=== PATIENT | male | born 1945 | race Caucasian/White ===

== ENCOUNTER 2018-12-28 18:37 | Emergency (ER) | payer MEDICARE, BC ==
--- NOTE | 2018-12-28 20:10 | CT ---
CT cervical spine Technique: Multiple axial sections were obtained from above C1 inferiorly to the top of T2. Reconstructed sagittal and coronal images were reviewed. Findings: Mild scattered disc space narrowing is seen. Minimal spondylolisthesis is noted at C6-C7 due to degenerative apophyseal change. Other degenerative apophyseal change is seen throughout the cervical spine. Slight posterior osteophytes are noted at C5-C6 and C6-C7. Diffuse scattered anterior osteophytes are seen. Mild right-sided neural foraminal stenosis is noted at C3-C4. Other neural foramina are felt to be patent. No bony central canal stenosis is seen. No fracture is identified. Impression: 1. Degenerative change as described above. Nothing acute is appreciated on CT study of the cervical spine. Diagnostic code #2
--- NOTE | 2018-12-28 20:13 | CR ---
Lumbar spine: AP, lateral and coned-down lateral view centered to the lumbosacral junction were obtained. Severe disc space narrowing is noted at L5-S1. Scattered anterior endplate osteophytes are seen throughout the lower thoracic and lumbar spine. Pedicles are intact. No discrete fracture or subluxation is seen. Sacroiliac joint on the right side shows slight sclerosis. Numerous surgical clips are seen within the pelvis. Impression: 1. Degenerative change as noted above. Previous pelvic surgery. Diagnostic code #2
--- NOTE | 2018-12-28 20:13 | CT ---
Head CT Technique: Multiple axial sections through the brain were obtained. Intravenous contrast was not utilized. Comparison: No previous intracranial imaging. Findings: Soft tissue swelling and soft tissue hematoma is seen within the left scalp within the posterior left frontal region and temporal region. No skull fracture is seen. Ventricles along with basal cisterns and sulci over the convexities are mildly prominent. No abnormal parenchymal densities are seen. No evidence of intracranial hemorrhage. No midline shift or mass effect is seen. Impression: 1. Scalp injury as noted above. Mild atrophy. 2. No acute intracranial abnormality or skull fracture is seen. Diagnostic code #2
--- NOTE | 2018-12-28 20:28 | EDM.PDOC ---
ED HPI GENERAL MEDICAL PROBLEM - General Chief Complaint: Trauma Stated Complaint: RAN OVER BY A COW/HEAD INJURY Time Seen by Provider: 12/28/18 18:52 Source of Information: Reports: Patient, Family History Limitations: Reports: No Limitations - History of Present Illness INITIAL COMMENTS - FREE TEXT/NARRATIVE: The patient presents with left sided head injury, neck and low back pain. The patient was trying to get a cow in a head gate and he was in the alley with her. The head gate did not catch her and she came backward and knocked him over. He got hit in the head and stepped on. He has lacerations to the left side of his head with edema to the left scientologist. He also has some neck pain and low back pain. He had no LOC. His tetanus is up to date. He has no blurred vision or double vision. He has no chest pain or shortness of breath. He has no abdominal pain, nausea or vomiting. Onset: Sudden Duration: Minutes: Location: Reports: Head, Neck, Back Quality: Reports: Sharp Severity: Moderate Improves with: Reports: None Worsens with: Reports: None Associated Symptoms: Reports: Headaches. Denies: Chest Pain, Cough, Fever/ Chills, Nausea/Vomiting, Shortness of Breath Left Head Pain Score (Numeric/FACES): 4 - Related Data Allergies Allergy/AdvReac Type Severity Reaction Status Date / Time No Known Allergies Allergy Verified 12/28/18 18:54 Home Meds: Home Meds Bisoprolol/Hydrochlorothiazide [Bisoprolol/HCTZ 10-6.25 MG] 1 tab PO DAILY 12/28 [History] Lisinopril 2.5 mg PO DAILY 12/28/18 [History] Past Medical History Cardiovascular History: Reports: Hypertension Oncologic (Cancer) History: Reports: Prostate Other Oncologic History: radical prostectomy- also had radiation treament when PSA started to climb Social & Family History - Tobacco Use Smoking Status *Q: Former Smoker Used Tobacco, but Quit: Yes Month/Year Tobacco Last Used: 40 yrs - Caffeine Use Caffeine Use: Reports: Coffee, Soda, Tea - Recreational Drug Use Recreational Drug Use: No Review of Systems - Review of Systems Review Of Systems: See Below Constitutional: Reports: No Symptoms Eyes: Reports: No Symptoms Ears: Reports: No Symptoms Nose: Reports: No Symptoms Mouth/Throat: Reports: No Symptoms Respiratory: Reports: No Symptoms Cardiovascular: Reports: No Symptoms GI/Abdominal: Reports: Decreased Appetite Genitourinary: Reports: No Symptoms Musculoskeletal: Reports: Neck Pain, Back Pain Neurological: Reports: Headache ED EXAM, GENERAL - Physical Exam Exam: See Below Exam Limited By: No Limitations General Appearance: Alert, No Apparent Distress Eye Exam: Bilateral Eye: EOMI, PERRL Ears: Normal External Exam Nose: Normal Inspection Throat/Mouth: Normal Inspection Head: Other (2 lacerations to the left side of his head just anterior to the scientologist with eccymosis and edema to the scientologist. One laceration is 1.5 and the other is 1cm. They are both superficial) Neck: Supple, Tender Lateral (mild) Respiratory/Chest: No Respiratory Distress, Lungs Clear, Normal Breath Sounds Cardiovascular: Regular Rate, Rhythm, No Edema, No Murmur GI/Abdominal: Soft, Non-Tender, No Organomegaly, No Mass Back Exam: Other (Pain upon palpation to the low back) Extremities: Non-Tender, Normal Capillary Refill, Other (superficial laceration to the left elbow) ED TRAUMA PROCEDURES - Laceration/Wound Repair Head Lac/Wound Length In cm: 2.5 Appearance: Superficial, Linear Skin Prep: Saline Exploration/Debridement/Repair: Wound Explored, In a Bloodless Field, Explored to Base Closed With: Dermabond Course - Vital Signs Last Recorded V/S: Last Vital Signs Temp 98.1 F 12/28/18 18:48 Pulse 75 12/28/18 18:48 Resp 20 12/28/18 18:48 BP 170/90 H 12/28/18 18:48 Pulse Ox 98 12/28/18 18:48 - Re-Assessments/Exams Free Text/Narrative Re-Assessment/Exam: 12/28/18 20:50 I closed both his superficial lacerations on the left scientologist area totaling 2.5cms with adhesive. The CT of his cervical spine shows degenerative change. Nothing acute is appreciated on CT study of the cervical spine. The CT of he head shows soft tissue swelling and soft tissue hematoma is seen within the left scalp within the posterior left frontal region and temporal region. No skull fracture is seen. Mild atrophy. No acute intracranial abnormality or skull fracture is seen. The x-ray of his back shows degenerative change and previous pelvic surgery. I will discharge him home. Departure - Departure Time of Disposition: 20:55 Disposition: Home, Self-Care 01 Condition: Good Clinical Impression: Head injury Qualifiers: Encounter type: initial encounter Qualified Code(s): S09.90XA - Unspecified injury of head, initial encounter Laceration of head Qualifiers: Encounter type: initial encounter Location of open wound of head: other part of head Foreign body presence: without foreign body Qualified Code(s): S01.81XA - Laceration without foreign body of other part of head, initial encounter Cervical strain Qualifiers: Encounter type: initial encounter Qualified Code(s): S16.1XXA - Strain of muscle, fascia and tendon at neck level, initial encounter Lumbar strain Qualifiers: Encounter type: initial encounter Qualified Code(s): S39.012A - Strain of muscle, fascia and tendon of lower back, initial encounter - Discharge Information *PRESCRIPTION DRUG MONITORING PROGRAM REVIEWED*: Not Applicable *COPY OF PRESCRIPTION DRUG MONITORING REPORT IN PATIENT KASI: Not Applicable Referrals: Sai Oswald MD [Primary Care Provider] - Forms: ED Department Discharge Additional Instructions: Let the adhesive set up for a good hour and after that you can take a shower. The adhesive will wear off over the next 7 to 10 days. Please return if you notice any signs of infection such as redness, swelling, pain or drainage. Take tylenol or motrin for pain. Ice the areas that hurt for 15 minutes 3 times per day for 2 days. Please return if you are worse.
== END 2018-12-28 21:02 | disposition home or self-care (01) ==
LOC: JD.ED 18:37
DX: S01.81XA Laceration without foreign body of other part of head, initial encounter (principal); S16.1XXA Strain of muscle, fascia and tendon at neck level, initial encounter; S39.012A Strain of muscle, fascia and tendon of lower back, initial encounter; Z79.899 Other long term (current) drug therapy; W55.22XA Struck by cow, initial encounter
CPT/HCPCS: 12011; 70450; 70450-26; 72100; 72100-26; 72125; 72125-26; 99284-25

== ENCOUNTER 2019-11-03 00:11 | Emergency (ER) | payer MEDICARE, BC ==
--- NOTE | 2019-11-03 00:54 | EDM.PDOC ---
ED HPI GENERAL MEDICAL PROBLEM - General Chief Complaint: Gastrointestinal Problem Stated Complaint: right side pain and buldge Time Seen by Provider: 11/03/19 00:23 Source of Information: Reports: Patient History Limitations: Reports: No Limitations - History of Present Illness INITIAL COMMENTS - FREE TEXT/NARRATIVE: This is a 74-year-old male. Onset this morning with right flank pain and cramping. He did not think too much of it and is continued to work throughout the day but nothing heavy or strenuous. Tonight he got into the shower and he noted that he is got a bulge on his right flank. It is a rather large bulge about the size of his hand that sticks out about 5 cm further than his left side. It is not significantly tender on palpation. He comes to the ER because he does not know what it is. He has been having normal bowel movements today and eating normally he has had no nausea or vomiting or difficulty in urination. No history of previous hernias. Right Lower Abdomen Pain Score (Numeric/FACES): 4 - Related Data Allergies Allergy/AdvReac Type Severity Reaction Status Date / Time No Known Allergies Allergy Verified 11/03/19 00:21 Home Meds: Home Meds Lisinopril 10 mg PO DAILY 12/28/18 [History] Tamsulosin HCl [Flomax] 1 tab PO DAILY 11/03/19 [History] hydroCHLOROthiazide [Hydrochlorothiazide] 12.5 mg PO DAILY 11/03/19 [History] Past Medical History HEENT History: Reports: Cataract, Hard of Hearing, Impaired Vision Cardiovascular History: Reports: Hypertension Respiratory History: Reports: None Gastrointestinal History: Reports: None Genitourinary History: Reports: Renal Calculus Musculoskeletal History: Reports: None Neurological History: Reports: None Psychiatric History: Reports: None Endocrine/Metabolic History: Reports: None Hematologic History: Reports: None Immunologic History: Reports: None Oncologic (Cancer) History: Reports: Prostate Other Oncologic History: radical prostectomy- also had radiation treament when PSA started to climb Dermatologic History: Reports: None - Infectious Disease History Infectious Disease History: Reports: None - Past Surgical History HEENT Surgical History: Reports: Cataract Surgery Male Surgical History: Reports: Lithotripsy ([facility]), Ureteral Stent, Other ( See Below) Other Male Surgeries/Procedures: Radical prostate surgery. Social & Family History - Tobacco Use Smoking Status *Q: Never Smoker - Caffeine Use Caffeine Use: Reports: Coffee, Soda - Recreational Drug Use Recreational Drug Use: No ED ROS GENERAL - Review of Systems Review Of Systems: See Below Constitutional: Denies: Fever, Chills HEENT: Reports: No Symptoms Respiratory: Reports: No Symptoms Cardiovascular: Reports: No Symptoms Endocrine: Reports: No Symptoms GI/Abdominal: Reports: Abdominal Pain, Other (Right flank bulging). Denies: Diarrhea, Nausea, Vomiting : Denies: Dysuria Musculoskeletal: Reports: No Symptoms Skin: Reports: No Symptoms Neurological: Reports: No Symptoms Psychiatric: Reports: No Symptoms Hematologic/Lymphatic: Reports: No Symptoms ED EXAM, GI/ABD - Physical Exam Exam: See Below Exam Limited By: No Limitations General Appearance: Alert, WD/WN, No Apparent Distress Eyes: Bilateral: Normal Appearance Ears: Normal External Exam Nose: Normal Inspection Throat/Mouth: Normal Lips, Normal Voice, No Airway Compromise Head: Normocephalic Neck: Supple Respiratory/Chest: No Respiratory Distress GI/Abdominal Exam: Soft, Other (Does appear to have a very large bulge about the size of his hand sticking out the right flank and it appears to be a hernia , with palpation I can kind of feel the edges of the hernia opening and it is easily reducible and not significantly tender there is an obviously asymmetry between the right and left flank) Back Exam: Other (No CVA tenderness though he is sore in the muscles in the lower right flank area) Extremities: Normal Inspection, Normal Range of Motion Neurological: Alert, Oriented Psychiatric: Normal Affect, Normal Mood Skin Exam: Warm, Dry Course - Vital Signs Last Recorded V/S: Last Vital Signs Temp 97.9 F 11/03/19 00:18 Pulse 65 11/03/19 00:18 Resp 16 11/03/19 00:18 BP 158/94 H 11/03/19 00:18 Pulse Ox 97 11/03/19 00:18 - Orders/Labs/Meds Orders: Active Orders 24 hr Category Date Time Status Abdomen Pelvis wo Cont [CT] Stat Exams 11/03/19 00:50 Taken - Radiology Interpretation Free Text/Narrative:: CT scan of the abdomen does not show any acute abnormalities but many chronic findings. He does have a small umbilical hernia but no abdominal wall hernia. - Re-Assessments/Exams Free Text/Narrative Re-Assessment/Exam: 11/03/19 02:21 I spoke to the patient regarding the CT scan results. He has a myofascial laxity in the right flank now. This was causing it bulges out. But he does not have any abdominal wall hernia in that area. Departure - Departure Time of Disposition: 02:24 Disposition: Home, Self-Care 01 Condition: Good Clinical Impression: Abdominal wall bulge - Discharge Information *PRESCRIPTION DRUG MONITORING PROGRAM REVIEWED*: Not Applicable *COPY OF PRESCRIPTION DRUG MONITORING REPORT IN PATIENT KASI: Not Applicable Referrals: Sai Oswald MD [Primary Care Provider] - Forms: ED Department Discharge Additional Instructions: Follow-up with your family doctor relating to this myofascial laxity in your right flank causing an abdominal bulge, you can discuss with him whether or not this is something you might want repaired or if it is something you just going to leave alone unless it worsens, return to the ER if needed Sepsis Event Note - Evaluation Sepsis Screening Result: No Definite Risk - Focused Exam Vital Signs: Vital Signs Temp Pulse Resp BP Pulse Ox 11/03/19 00:18 97.9 F 65 16 158/94 H 97 Date Exam was Performed: 11/03/19 Time Exam was Performed: 02:20 - My Orders Last 24 Hours: My Active Orders 11/03/19 00:50 Abdomen Pelvis wo Cont [CT] Stat - Assessment/Plan Last 24 Hours: My Active Orders 11/03/19 00:50 Abdomen Pelvis wo Cont [CT] Stat
--- NOTE | 2019-11-04 13:52 | CT ---
CT abdomen and pelvis Technique: Multiple axial sections were obtained from above the dome of the diaphragm inferiorly through the pubic symphysis. Intravenous and oral contrast not utilized. Study has been performed as a ureteral stone protocol. Comparison: No prior intra-abdominal imaging is available. Findings: Visualized lung bases show nothing acute. Noncontrast appearance of the liver and spleen appears normal. Minimal hiatal hernia is noted. Adrenal glands show no nodule. Pancreas appears within normal limits. Gallbladder contains no calcified gallstones. Cyst is noted within the left kidney measuring around 7 cm in size. Kidneys show no hydronephrosis or abnormal calcifications. No ureteral dilatation or ureteral stone is seen. Aorta shows atherosclerotic change without aneurysm. No retroperitoneal adenopathy or mesenteric abnormalities are seen. Numerous diverticuli are seen throughout the colon without inflammatory change of diverticulitis. Appendix is seen which is normal in size. No pelvic mass or adenopathy is seen. Multiple surgical clips are seen within the pelvis. No free fluid or inflammatory change is seen. Bone window settings were reviewed which show scattered degenerative changes throughout the spine. 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 Small umbilical fat-containing hernia is noted. Impression: 1. No renal calculi, ureteral dilatation or ureteral stone is seen. 2. Other findings as noted above. 3. Nothing acute is appreciated on noncontrast CT study of the abdomen and pelvis performed as a ureteral stone protocol. Diagnostic code #2 I agree with preliminary report issued by [facility] ([facility] preliminary report dictated on 11/03/19, 2:57 AM Central Time)
== END 2019-11-03 02:30 | disposition home or self-care (01) ==
LOC: JD.ED 00:11
DX: R19.03 Right lower quadrant abdominal swelling, mass and lump (principal); I10 Essential (primary) hypertension; Z79.899 Other long term (current) drug therapy
CPT/HCPCS: 74176; 74176-26; 99284-25